=== PATIENT | female | born 1955 | race Caucasian/White ===

== ENCOUNTER 2017-04-17 21:27 | Inpatient (IN) | payer OTHER ==
[~2017-04-17] VITALS: Ht 170.2 cm; Wt 91.1 kg
[2017-04-17 22:09] LABS: HEMATOCRIT 27.7 % (34.6-47.8); HEMOGLOBIN 9.1 g/dL (11.7-16.4); WHITE BLOOD COUNT 7.7 x10^3/uL (3.4-10)
[2017-04-17 22:13] LABS: BLOOD UREA NITROGEN 15 mg/dL (7-18)
[2017-04-17 22:26] LABS: IS PT STATUS REG ER OR PRE ER? YES
[2017-04-17] MEDS ORDERED: OMNIPAQUE 350 MG/ML, 100ML BOTTLE ONE (22:56)
[2017-04-17] MEDS ORDERED: LEVOFLOXACIN/PMX 500MG/100ML 100 ML IV ONE (23:45)
[2017-04-17] MEDS ORDERED: FEXO1TAB25 PO (23:53)
[2017-04-17] MEDS ORDERED: OXYC1TAB9 PO (23:53)
[2017-04-17] MEDS ORDERED: BUDE10.2 INH (23:53)
[2017-04-18] MEDS ORDERED: LEVOFLOXACIN/PMX 500MG/100ML 100 ML IV SCH
[2017-04-18] MEDS ORDERED: PIPERACILLIN/TAZO/PMX 3.375GM 50 ML ONE (00:16)
[2017-04-18] MEDS ORDERED: ACETAMINOPHEN 325 MG TABLET PO PRN (00:30)
[2017-04-18] MEDS ORDERED: ONDANSETRON 2MG/ML, 2ML IVPush PRN ×2 (00:30)
[2017-04-18] MEDS ORDERED: LABETALOL 5MG/ML, 20ML IVPush PRN (00:30)
[2017-04-18] MEDS ORDERED: PROMETHAZINE 25 MG/ML, 1ML IM PRN (00:30)
[2017-04-18] MEDS ORDERED: ENALAPRILAT 1.25 MG/ML, 2ML IVPush PRN (00:30)
[2017-04-18] MEDS ORDERED: VANCOMYCIN PER PHARMACY MC PRN (00:30)
[2017-04-18] MEDS: PIPERACILLIN/TAZO/PMX 3.375GM 50 ML IV SCH ×4 (00:45→18:14)
[2017-04-18 01:30] VITALS: BP 148/79
[2017-04-18] MEDS ORDERED: PHARMACOKINETIC MONITORING MC PRN (02:00)
[2017-04-18] MEDS ORDERED: PHARMACOKINETIC CONSULTATION MC ONE (02:00)
[2017-04-18] MEDS: NICOTINE 7 MG/24 HR PATCH.TD24 TD SCH (02:22)
[2017-04-18] MEDS: ENOXAPARIN 40 MG/0.4 ML SQ SCH (02:29)
[2017-04-18] MEDS: VANCOMYCIN 1,600 MG in SODIUM CHLORIDE 0.9% 250 ML IV SCH (02:30)
[2017-04-18 06:55] VITALS: BP 150/81
[2017-04-18 07:26] LABS: ASPARTATE AMINO TRANSFERASE 24 U/L (15-37); BLOOD UREA NITROGEN 12 mg/dL (7-18)
[2017-04-18 07:31] LABS: HEMATOCRIT 28.6 % (34.6-47.8); HEMOGLOBIN 9.4 g/dL (11.7-16.4); WHITE BLOOD COUNT 6.9 x10^3/uL (3.4-10)
[2017-04-18] MEDS: FLUTICASONE/VILANTEROL 100-25MCG/INH INH SCH (10:07)
[2017-04-18 13:05] VITALS: BP 159/74
[2017-04-18 19:04] VITALS: BP 151/75
[2017-04-19] MEDS: NICOTINE 7 MG/24 HR PATCH.TD24 TD SCH (00:29)
[2017-04-19] MEDS: PIPERACILLIN/TAZO/PMX 3.375GM 50 ML IV SCH ×4 (00:33→18:00)
[2017-04-19] MEDS: ENOXAPARIN 40 MG/0.4 ML SQ SCH (02:36)
[2017-04-19 02:55] VITALS: BP 145/75
[2017-04-19] MEDS: VANCOMYCIN 1,600 MG in SODIUM CHLORIDE 0.9% 250 ML IV SCH (03:02)
[2017-04-19 05:25] LABS: HEMATOCRIT 27.9 % (34.6-47.8); HEMOGLOBIN 9.2 g/dL (11.7-16.4); WHITE BLOOD COUNT 7.8 x10^3/uL (3.4-10)
[2017-04-19 06:09] LABS: BLOOD UREA NITROGEN 9 mg/dL (7-18)
[2017-04-19 07:27] VITALS: BP 158/81
[2017-04-19] MEDS: FLUTICASONE/VILANTEROL 100-25MCG/INH INH SCH (09:00)
[2017-04-19] MEDS ORDERED: FUROSEMIDE 40 MG/4 ML IV ONE (15:30)
[2017-04-19 16:38] VITALS: BP 154/91
[2017-04-19 16:45] LABS: FERRITIN 878.2 ng/mL (8-252)
[2017-04-19 20:39] VITALS: BP 159/79
[2017-04-19] MEDS ORDERED: VANCOMYCIN 1,800 MG in SODIUM CHLORIDE 0.9% 250 ML IV SCH (21:00)
[2017-04-20] MEDS: NICOTINE 7 MG/24 HR PATCH.TD24 TD SCH (00:14)
[2017-04-20] MEDS: PIPERACILLIN/TAZO/PMX 3.375GM 50 ML IV SCH ×2 (00:22→06:25)
[2017-04-20] MEDS ORDERED: ENALAPRILAT 1.25 MG/ML, 2ML IVPush PRN (00:30)
[2017-04-20] MEDS ORDERED: ONDANSETRON 2MG/ML, 2ML IVPush PRN (00:30)
[2017-04-20] MEDS ORDERED: VANCOMYCIN PER PHARMACY MC PRN (00:30)
[2017-04-20] MEDS ORDERED: PROMETHAZINE 25 MG/ML, 1ML IM PRN (00:30)
[2017-04-20] MEDS ORDERED: LABETALOL 5MG/ML, 20ML IVPush PRN (00:30)
[2017-04-20] MEDS ORDERED: ACETAMINOPHEN 325 MG TABLET PO PRN (00:30)
[2017-04-20 01:02] VITALS: BP 143/79
[2017-04-20] MEDS: ENOXAPARIN 40 MG/0.4 ML SQ SCH (02:48)
[2017-04-20 05:47] LABS: BLOOD UREA NITROGEN 15 mg/dL (7-18)
[2017-04-20 08:35] VITALS: BP 150/79
[2017-04-20] MEDS ORDERED: LOSARTAN 25MG TABLET PO SCH (09:00)
[2017-04-20] MEDS: FLUTICASONE/VILANTEROL 100-25MCG/INH INH SCH (09:21)
[2017-04-20] MEDS ORDERED: POTASSIUM CHLORIDE 20 MEQ TAB.ER.PRT PO ONE (12:00)
[2017-04-20] MEDS ORDERED: CEFD300C37 PO (12:22)
[2017-04-20] MEDS ORDERED: DOXY100T PO (12:22)
[2017-04-20] MEDS ORDERED: FURO-93 PO (12:26)
[2017-04-20] MEDS ORDERED: POTA20PA25 PO (12:27)
[2017-04-20] MEDS ORDERED: FUROSEMIDE 20 MG/2 ML IV ONE (12:30)
[2017-04-20] MEDS ORDERED: LOSA25TA2 PO (12:31)
[2017-04-20 12:46] VITALS: BP 156/77
== END 2017-04-20 13:50 | disposition home or self-care (01) | DRG 177 ==
LOC: ED 23:10 → SUATTDRO 04-18 → ED 04-18 00:30 → 4NOR 04-18 00:31
PROVIDERS: ADMIT Internal Medicine; ATTEND Internal Medicine
DX: J15.212 Pneumonia due to Methicillin resistant Staphylococcus aureus (principal); J96.01 Acute respiratory failure with hypoxia; J90 Pleural effusion, not elsewhere classified; E27.8 Other specified disorders of adrenal gland; I27.2 Other secondary pulmonary hypertension; Z99.81 Dependence on supplemental oxygen; J98.11 Atelectasis; D53.9 Nutritional anemia, unspecified; D75.89 Other specified diseases of blood and blood-forming organs; F10.20 Alcohol dependence, uncomplicated; F17.210 Nicotine dependence, cigarettes, uncomplicated; I10 Essential (primary) hypertension; Z90.81 Acquired absence of spleen
CPT/HCPCS: 36415; 71010; 71275; 80048; 80053; 82040; 82306; 82533; 82607; 82728; 82746; 83540; 83550; 83735; 83880; 84443; 84466; 84484; 85025; 87040; 93005; 93306; 93970; 99285; J1650; J1940; J2543; J3370; Q9967; J7050

== ENCOUNTER → 2017-04-21 | Outpatient (CLI) | payer OTHER ==
[~2017-04-21] MED LIST: BUDE10.2 INH; CEFD300C37 PO; DOXY100T PO; FEXO1TAB25 PO; FURO-93 PO; LOSA25TA2 PO; OXYC1TAB9 PO; POTA20PA25 PO
== END | disposition home or self-care (01) ==
LOC: CFH 08:47
PROVIDERS: ATTEND Surgery
DX: S27.803A Laceration of diaphragm, initial encounter (principal); S27.321A Contusion of lung, unilateral, initial encounter; J90 Pleural effusion, not elsewhere classified; V89.9XXA Person injured in unspecified vehicle accident, initial encounter
CPT/HCPCS: 71020

== ENCOUNTER → 2020-10-23 | Outpatient (CLI) | payer MEDICARE, OTHER ==
[~2020-10-23] MED LIST changes: +OXYC1TAB18 PO; -OXYC1TAB9 PO
== END | disposition home or self-care (01) ==
LOC: CFH 10:17
PROVIDERS: ATTEND Family Medicine
DX: Z12.31 Encounter for screening mammogram for malignant neoplasm of breast (principal); Z12.2 Encounter for screening for malignant neoplasm of respiratory organs; M24.10 Other articular cartilage disorders, unspecified site; N95.9 Unspecified menopausal and perimenopausal disorder; M85.80 Other specified disorders of bone density and structure, unspecified site; F17.210 Nicotine dependence, cigarettes, uncomplicated
CPT/HCPCS: 71271; 77067; 77080